=== PATIENT | male | born 1970 | race Caucasian/White ===

== ENCOUNTER 2016-11-28 10:44 | Emergency (ER) | payer MEDICARE, OTHER ==
[~2016-11-28 10:44] MED LIST: ABILIFY2 PO; AMB10 PO; ARICEPT10 PO; BACDS PO; CELEXA20 PO; CELEXA40 MG PO; CLEOCIN300 MG PO; CRESTOR10 PO; FLEX PO; LORTAB 5 PO; MEDROLPAK4 PO; METHOC500B PO; MSCONT15 PO; NAP500 PO; NEUR300 PO; NEXIUM40 PO; OXYCON20 PO; PCET PO; PERCOCET 7.5/321 TAB PO; PERCOCET1 TA2 PO; PROTONIX PO; TRICOR145 PO; TRILEP300 PO; TRILEPTAL600 MG PO; ULTRAM50 PO; V5 PO; ZANAFLEX 4 MG TA4 MG PO; ZESTORETIC1 TAB PO
== END 2016-11-28 12:52 | disposition home or self-care (01) ==
LOC: ER 10:44
DX: M54.5 Low back pain (principal); Z86.73 Personal history of transient ischemic attack (TIA), and cerebral infarction without residual deficits; Z88.5 Allergy status to narcotic agent; Z91.09 Other allergy status, other than to drugs and biological substances; Z79.899 Other long term (current) drug therapy
CPT/HCPCS: 72100; 96372; 99283; J1170